=== PATIENT | female | born 2000 | race Hispanic/Latino ===

== ENCOUNTER 2023-03-02 12:05 | Emergency (ER) | payer SELFPAY ==
--- OUTSIDE RECORDS SUMMARY | 2023-03-02 12:09 | XMS REPORT | Continuity of Care Document ---
:2000 Author Organization [facility] t Address [address] [place] [address] Care Team Providers Name Role Phone Kevin Boyer Attending Clinician Unavailable KNOW, DOES_NOT Attending Clinician Unavailable Kevin Boyer E Admitting Clinician Unavailable KNOW, DOES_NOT Admitting Clinician Unavailable Payers Payer Name Policy Type Policy Number Effective Date Expiration Date S ource Problems This patient has no known problems. Allergies, Adverse Reactions, Alerts Allergy Allergy Status Severity Reaction(s) Onset Inactive Treating Comm ents Source Name Type Date Date Clinician No Known DA Active U 2020-0 [facility] 00:00: [address] No Known DA Active U 2020-0 [facility]14 [facility] s 00:00: [address] No Known DA Active U 2020-0 [facility] 4-15 [facility] s 00:00: [address] No Known DA Active U 2020-0 [facility]15 [facility] s 00:00: [address] No Known DA Active U 2019-0 [facility] 9-12 Corp[facility] s 00:00: [address] No Known DA Active U 2019-0 [facility]ie -23 Corpus s 00:00: [address] No Known DA Active U 2019-0 [facility] - Corpus s 00:00: [address] Medications This patient has no known medications. Procedures Procedure Date / Time Performed Performing Clinician Sourc e [id number] 2020-03-13 00:00:00 EARLGRO JORGE [facility] [id number] 2020-03-13 00:00:00 EARLGRO JORGE Campa [facility] [id number] 2020-03-13 00:00:00 EARLGRO JORGE Campa [facility] [id number] 2020-03-13 00:00:00 EARLO [facility] Lokesh C [facility] [id number] 2020-03-13 00:00:00 [facility] Encounters Start End Encounter Admission Attending Care Care Encounter Source Date/Time Date/Time Type Type Clinicians Facility Department ID 2020-03-12 [facility] [id number] [facility] 10:54:00 Kevin [id number] [facility] 2020-02-12 In[facility] Boyer[facility] JOSE [id number] [facility] 20:18:00 Kevin [id number] [facility] 2020-03-10 2020-03-10 Outpatient KNOW, [facility] LABO [id number] [facility] 08:45:00 08:45:00 DOES_NOT 70 [facility] Results Test Description Test Time Test Comments Results Result Comments Source HEMATOCRIT 2020-03-14 09:36:00 Test Item Value Reference Range Interpretation Comme nts HEMATOCRIT (test code = HCT) 30.9 % 37-47 L AG HEPATITIS B [id number] 09:09:00 Test Item Value Reference Range Interpretation Comments AG HEPATITIS B SURFACE Negative Negative Perfo rmed At: HD (test code = HBSAG) [facility] [id number] [place], [place] [id number] ronnell Cobb MD Ph:[phone] ISTAT CORD [id number] 16:01:00 Test Item Value Reference Range Interpretation Comments ISTAT-PH CORD (test 7.214 7.000-7.400 N Although the precise code = PHCOP) value that is required to defineacidem ia is not known, umbi lical arterial pH marbella ues of less than 7.0 m ore realistically r epresent clinically sign ificant acidosis. 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 [facility] SRCIST) RAPID PLASMA [id number] 09:56:00 Test Item Value Reference Range Interpretation Comments RAPID PLASMA REAGIN (test code = Nonreactive Nonreactive RPR) HIV 1/2 RAPID [id number] 00:25:00 Test Item Value Reference Range Interpretation Comments HIV 1/2 RAPID SCREEN (test code = NonReactive NonReactive [id number]) : TUBE IN LABCBC W/AUTO [id number] 23:59:00 Test Item Value Reference Range Interpretation Comments WHITE BLOOD CELL (test code = 7.43 x10 3/uL 4.80-10.80 N WBC) RED BLOOD CELL (test code = 3.61 x10 6/uL 4.2-5.4 L RBC) HEMOGLOBIN (test code = HGB) 9.4 G/DL 12.0-16.0 L HEMATOCRIT (test code = HCT) 29.8 % 37-47 L MEAN CELL VOLUME (test code = 82.5 FL 81-99 N MCV) MEAN CELL HGB (test code = MCH) 26.0 PG 27-31 L MEAN CELL HGB CONCENTRATION 31.5 G/DL 33-37 L (test code = MCHC) RED CELL DISTRIBUTION WIDTH 13.7 % 11.5-14.5 N (test code = RDW) PLATELET COUNT (test code = 211 x10 3/uL 150-450 N PLT) MEAN PLATELET VOLUME (test code 12.1 FL 7.4-10.4 H = MPV) NEUTROPHIL % (test code = NT%) 69.3 % 42-86 N IMMATURE GRANULOCYTE % (test 0.3 % 0.0-2.0 N code = IG%) LYMPHOCYTE % (test code = LY%) 23.8 % 24-44 L MONOCYTE % (test code = MO%) 5.9 % 0.0-4.0 H EOSINOPHIL % (test code = EO%) 0.4 % 0.0-2.7 N BASOPHIL % (test code = BA%) 0.3 % 0.0-0.5 N NUCLEATED RBC % (test code = 0.0 % 0.0-0.0 N NRBC%) NEUTROPHIL # (test code = NT#) 5.15 x10 3/uL 1.8-7.7 N IMMATURE GRANULOCYTE # (test 0.02 x10 3/uL 0.00-0.03 N code = IG#) LYMPHOCYTE # (test code = LY#) 1.77 x10 3/uL 1.0-4.8 N MONOCYTE # (test code = MO#) 0.44 x10 3/uL 0.0-0.8 N EOSINOPHIL # (test code = EO#) 0.03 x10 3/uL 0.0-0.5 N BASOPHIL # (test code = BA#) 0.02 x10 3/uL 0.0-0.2 N NUCLEATED RBC # (test code = 0.0 X10 3/uL 0.0-0.2 N NRBC#) Novel Coronavirus 2018 [id number] 15:37:00 Test Item Value Reference Range Interpretation Comments Novel Coronavirus Negative Negative Positive r esults are 2019 Inhouse (test indicativ e of the presence code = COVNONPUI) ofSARS-CoV -2 RNA, clinical correlation wit h patient historyand othe r diagnostic info rmation is necessary to determinepatien t infection status. Positiv e results do not rule out bacterial infection or co -infection with other viru ses. Negative result s do not preclude SARS-C oV-2 infection andsh ould not be used as the trent e basis for patient managementdecis ions. Negative result s must be combined with otherclinical observations, p atient history, and epidemiological information . Detection of SARS-CoV-2 RNA may be affe cted bysample collec tion methods, storag e conditions, and /or stageof infection. Kacie l RNA mutations, vacc inations, antiviraltherap eutics, antibiotics, chemotherapeuti c orimmunosuppres carlyn drugs have not been e valuated for effectson d etection. Results are for the identification of SARS-CoV-2 RNA usingthe Alonso M2000 Sy stem under the FDA Emergen cy UseAuthorizatio n. The testing is perf ormed by evi marte in the procedures for the Alonso M2000 molecular diagnostic SARS-CoV-2 assa y in vitro UA RFLX [id number] 21:54:00 Test Item Value Reference Range Interpretation Comments UA COLOR (test code = COLU) Colorless YELLOW UA APPEARANCE (test code = CLEAR CLEAR APPU) UA GLUCOSE DIPSTICK (test NORMAL mg/dL NEGATIVE code = DGLUU) UA BILIRUBIN DIPSTICK (test NEGATIVE NEGATIVE code = BILU) UA KETONE DIPSTICK (test code 10 mg/dL NEGATIVE = KETU) UA SPECIFIC GRAVITY (test 1.006 1.001-1.035 N code = SGU) UA BLOOD DIPSTICK (test code NEGATIVE NEGATIVE = JEROME) UA PH DIPSTICK (test code = 6.5 5.5-7.0 N KENNETH) UA PROTEIN DIPSTICK (test NEGATIVE mg/dL NEGATIVE code = PROU) UA UROBILINOGEN DIPSTICK NORMAL mg/dL NORMAL (test code = URO) UA NITRITE DIPSTICK (test NEGATIVE NEGATIVE code = DESIRAE) UA LEUKOCYTE ESTERASE NEGATIVE NEGATIVE DIPSTICK (test code = LEUU) UA COMMENT (test code = COMU) VOLUME 10-12 ML URINE SPECIMEN DESCRIPTION Catheterized (test code = UASPEC) URINE SOURCE: CatheterizedUA RFLX [id number] 21:43:00 Test Item Value Reference Range Interpretation Comments UA COLOR (test code = COLU) Colorless YELLOW UA APPEARANCE (test code = CLEAR CLEAR APPU) UA GLUCOSE DIPSTICK (test NORMAL mg/dL NEGATIVE code = DGLUU) UA BILIRUBIN DIPSTICK (test NEGATIVE NEGATIVE code = BILU) UA KETONE DIPSTICK (test code 10 mg/dL NEGATIVE = KETU) UA SPECIFIC GRAVITY (test 1.006 1.001-1.035 N code = SGU) UA BLOOD DIPSTICK (test code NEGATIVE NEGATIVE = JEROME) UA PH DIPSTICK (test code = 6.5 5.5-7.0 N KENNETH) UA PROTEIN DIPSTICK (test NEGATIVE mg/dL NEGATIVE code = PROU) UA UROBILINOGEN DIPSTICK NORMAL mg/dL NORMAL (test code = URO) UA NITRITE DIPSTICK (test NEGATIVE NEGATIVE code = DESIRAE) UA LEUKOCYTE ESTERASE NEGATIVE NEGATIVE DIPSTICK (test code = LEUU) UA COMMENT (test code = COMU) VOLUME 10-12 ML URINE SPECIMEN DESCRIPTION (test code = UASPEC) URINE SOURCE: [facility]izedG[facility]FFIN [facility] [id number] 15:38:00 Test Item Value Reference Range Interpretation Comments HCG SERUM (test code 3634 0-6 H Reporti ng Units: = HCGQT) micro-internati onal units/mL Gestat ional Age hCG level------ --------- ---------0.2-1 week 5-501-2 weeks 50-5002-3 weeks 100-5,0003-4 we eks 500-10,0004-5 w eeks 1,000-50,0005-6 weeks 10,000-100,0006 -8 weeks 15,000-200,0002 -3 months 10,000-100,000 hCG levels rise rapidly du ring for 1 0-12 weeksand slowly decline to 1,000 - 50,000 in third trimester. González facturer Disclaimer:Valu es from different assay methods may vary. The use o fthis assay to monitor or t o diagnose patients with c anceror any condition unrel ated to has n ot beenapproved by the FDA or the manufacture r of this assay. UA RFLX MICROSCOPIC [id number] 14:53:00 Test Item Value Reference Range Interpretation Comments UA COLOR (test code = COLU) YELLOW YELLOW UA APPEARANCE (test code = CLEAR CLEAR APPU) UA GLUCOSE DIPSTICK (test NEGATIVE mg/dL NEGATIVE code = DGLUU) UA BILIRUBIN DIPSTICK (test NEGATIVE NEGATIVE code = BILU) UA KETONE DIPSTICK (test NEGATIVE mg/dL NEGATIVE code = KETU) UA SPECIFIC GRAVITY (test 1.000 1.001-1.035 L code = SGU) UA BLOOD DIPSTICK (test code NEGATIVE NEGATIVE = JEROME) UA PH DIPSTICK (test code = 7.0 5.5-7.0 N KENNETH) UA PROTEIN DIPSTICK (test NEGATIVE mg/dL NEGATIVE code = PROU) UA UROBILINOGEN DIPSTICK NORMAL mg/dL NORMAL (test code = URO) UA NITRITE DIPSTICK (test NEGATIVE NEGATIVE code = DESIRAE) UA LEUKOCYTE ESTERASE TRACE NEGATIVE A DIPSTICK (test code = LEUU) UA COMMENT (test code = VOLUME 10-12 ML COMU) URINE SPECIMEN DESCRIPTION Clean Catch (test code = UASPEC) UA WBC (test code = WBCU) < 10 #/hpf <10 UA SQUAMOUS CELLS (test code 0 - 20 #/lpf <100 = SQU) UA CULTURE NEEDED? (test Criteria not met code = UACULT) Indication for culture: Suprapubic PainURINE SOURCE: Clean CatchUA MICROSCOPIC 2019-07-11 14:53:00 Test Item Value Reference Range Interpretation Comments UA RBC (test code = RBCU) None Seen #/hpf NONE SEEN UA MUCUS (test code = MUCU) 1+ #/lpf NONE SEEN Indication for culture: Suprapubic PainURINE SOURCE: Clean CatchCOMPREHENSIVE METABOLIC [id number] 14:50:00 Test Item Value Reference Range Interpretation Comments SODIUM (test code = 136 MMOL/L 133-145 N NA) POTASSIUM (test 3.8 MMOL/L 3.6-5.2 N code = K) CHLORIDE (test code 104 MMOL/L 100-108 N = CL) CARBON DIOXIDE 26 MMOL/L 22-32 N (test code = CO2) GLUCOSE (test code 70 MG/DL 65-99 N Results o f this = GLU) assay method ma y be falsely depressed orelevated if patient is taki ng sulfasalazine. BLOOD UREA NITROGEN 5 MG/DL 6-20 L (test code = BUN) GLOMERULAR Unable to 71-165 N Unable to FILTRATION RATE calculate calculate eG FR; no (test code = GFR) race enter ed to medical record.Reportin g units: mL/min/1.73m\S\ 2 (Modified MDRD Formula) CREATININE (test 0.58 MG/DL 0.60-1.00 L code = CREAT) TOTAL PROTEIN (test 7.4 G/DL 6.4-8.2 N code = PROT) ALBUMIN (test code 3.7 G/DL 3.4-5.0 N = ALB) GLOBULIN (test code 3.7 G/DL 1.5-3.8 N = GLOB) ALBUMIN/GLOBULIN 1.0 1.1-2.2 L RATIO (test code = A/G) CALCIUM (test code 8.1 MG/DL 8.7-10.5 L = CA) BILIRUBIN TOTAL 0.4 MG/DL 0.0-1.0 N (test code = BILT) SGOT/AST (test code 22 Units/L 15-37 N Results of this = AST) assay method ma y be falsely depressed orelevated if patient is taki ng sulfasalazine. SGPT/ALT (test code 23 Units/L 30-65 L Results of this = ALT) assay method ma y be falsely depressed orelevated if patient is taki ng sulfasalazine. ALKALINE 68 Units/L 50-136 N PHOSPHATASE TOTAL (test code = ALKP) DRUG OF ABUSE SCREEN [id number] 14:48:00 Test Item Value Reference Interpretation Comments Range UR COCAINE (test NEGATIVE NEGATIVE code = COCAU) UR MDMA (test code = NEGATIVE NEGATIVE MDMAQLU) UR CANNABINOIDS NEGATIVE NEGATIVE (test code = CANU) UR AMPHETAMINE (test NEGATIVE NEGATIVE code = AMPHU) UR BARBITURATE QUAL NEGATIVE NEGATIVE (test code = BARBQLU) UR BENZODIAZEPINE NEGATIVE NEGATIVE (test code = BENZU) UR OPIATES QUAL NEGATIVE NEGATIVE (test code = OPIAQLU) UR PHENCYCLIDINE NEGATIVE NEGATIVE Urine Drug Abuse Screen (PCP) (test code = provides preliminary PHENCU) results thatmay be confirmed by elsie parisi methods (i.e., GC/MS) at [facility]. Results of scre en may not be usedin crimi nal justice, job performance or professionalcre dential review, or infa nt custody issues. Negativ e [place] Level ng/ml ------- ----- Cocaine 3 00 Methamphetamine (Ecstacy) 500 Cannabinoi ds (THC) 50 Amphetamine 100 0 Barbiturates 20 0 Benzodiazepines 200 Opiates 300 Phencyclidi ne (PCP) 25 COMPREHENSIVE METABOLIC [id number] 14:48:00 Test Item Value Reference Range Interpretation Comments SODIUM (test code = 136 MMOL/L 133-145 N NA) POTASSIUM (test 3.8 MMOL/L 3.6-5.2 N code = K) CHLORIDE (test code 104 MMOL/L 100-108 N = CL) CARBON DIOXIDE 26 MMOL/L 22-32 N (test code = CO2) GLUCOSE (test code 70 MG/DL 65-99 N Results o f this = GLU) assay method ma y be falsely depressed orelevated if patient is taki ng sulfasalazine. BLOOD UREA NITROGEN 5 MG/DL 6-20 L (test code = BUN) GLOMERULAR Unable to 71-165 N Unable to FILTRATION RATE calculate calculate eG FR; no (test code = GFR) race enter ed to medical record.Reportin g units: mL/min/1.73m\S\ 2 (Modified MDRD Formula) CREATININE (test 0.58 MG/DL 0.60-1.00 L code = CREAT) TOTAL PROTEIN (test G/DL 6.4-8.2 code = PROT) ALBUMIN (test code G/DL 3.4-5.0 = ALB) GLOBULIN (test code G/DL 1.5-3.8 = GLOB) ALBUMIN/GLOBULIN 1.1-2.2 RATIO (test code = A/G) CALCIUM (test code 8.1 MG/DL 8.7-10.5 L = CA) BILIRUBIN TOTAL MG/DL 0.0-1.0 (test code = BILT) SGOT/AST (test code Units/L 15-37 = AST) SGPT/ALT (test code Units/L 30-65 = ALT) ALKALINE Units/L 50-136 PHOSPHATASE TOTAL (test code = ALKP) HCG SERUM [id number] 14:47:00 Test Item Value Reference Range Interpretation Comments HCG SERUM QUAL POSITIVE NEGATIVE A Called to and read back by (test code = FERMIN MEEKS ,RN HCGQL) .D.LAB.APB1, 07/11/19-7.C onditions other than preg heladio may give positive r esultswith this assay. A c onfirmed diagnosis of pr egnancy shouldbe made o nly after clinical evalua tion by a physician. Non- Human Chorionic Gonad otropin (HCG) substance s such asanti-animal immunoglobulin antibodies (Human Anti-Caterina seAntibodies or HAMA), troph oblastic disease, and ne oplasms,may give positive r esults. UA RFLX MICROSCOPIC [id number] 14:43:00 Test Item Value Reference Range Interpretation Comments UA COLOR (test code = COLU) YELLOW YELLOW UA APPEARANCE (test code = CLEAR CLEAR APPU) UA GLUCOSE DIPSTICK (test NEGATIVE mg/dL NEGATIVE code = DGLUU) UA BILIRUBIN DIPSTICK (test NEGATIVE NEGATIVE code = BILU) UA KETONE DIPSTICK (test code NEGATIVE mg/dL NEGATIVE = KETU) UA SPECIFIC GRAVITY (test 1.000 1.001-1.035 L code = SGU) UA BLOOD DIPSTICK (test code NEGATIVE NEGATIVE = JEROME) UA PH DIPSTICK (test code = 7.0 5.5-7.0 N KENNETH) UA PROTEIN DIPSTICK (test NEGATIVE mg/dL NEGATIVE code = PROU) UA UROBILINOGEN DIPSTICK NORMAL mg/dL NORMAL (test code = URO) UA NITRITE DIPSTICK (test NEGATIVE NEGATIVE code = DESIRAE) UA LEUKOCYTE ESTERASE TRACE NEGATIVE A DIPSTICK (test code = LEUU) UA COMMENT (test code = COMU) VOLUME 10-12 ML URINE SPECIMEN DESCRIPTION Clean Catch (test code = UASPEC) UA WBC (test code = WBCU) #/hpf <10 UA SQUAMOUS CELLS (test code #/lpf <100 = SQU) UA CULTURE NEEDED? (test code = UACULT) Indication for culture: Suprapubic PainURINE SOURCE: Clean CatchUA MICROSCOPIC 2019-07-11 14:43:00 Test Item Value Reference Range Interpretation Comments UA RBC (test code = RBCU) #/hpf NONE SEEN Indication for culture: Suprapubic PainURINE SOURCE: Clean CatchUA RFLX MICROSCOPIC [id number] 14:43:00 Test Item Value Reference Range Interpretation Comments UA COLOR (test code = COLU) YELLOW YELLOW UA APPEARANCE (test code = CLEAR CLEAR APPU) UA GLUCOSE DIPSTICK (test NEGATIVE mg/dL NEGATIVE code = DGLUU) UA BILIRUBIN DIPSTICK (test NEGATIVE NEGATIVE code = BILU) UA KETONE DIPSTICK (test code NEGATIVE mg/dL NEGATIVE = KETU) UA SPECIFIC GRAVITY (test 1.000 1.001-1.035 L code = SGU) UA BLOOD DIPSTICK (test code NEGATIVE NEGATIVE = JEROME) UA PH DIPSTICK (test code = 7.0 5.5-7.0 N KENNETH) UA PROTEIN DIPSTICK (test NEGATIVE mg/dL NEGATIVE code = PROU) UA UROBILINOGEN DIPSTICK NORMAL mg/dL NORMAL (test code = URO) UA NITRITE DIPSTICK (test NEGATIVE NEGATIVE code = DESIRAE) UA LEUKOCYTE ESTERASE TRACE NEGATIVE A DIPSTICK (test code = LEUU) UA COMMENT (test code = COMU) VOLUME 10-12 ML URINE SPECIMEN DESCRIPTION Clean Catch (test code = UASPEC) UA WBC (test code = WBCU) #/hpf <10 UA SQUAMOUS CELLS (test code #/lpf <100 = SQU) UA CULTURE NEEDED? (test code = UACULT) Indication for culture: Suprapubic PainURINE SOURCE: Clean CatchUA MICROSCOPIC 2019-07-11 14:43:00 Test Item Value Reference Range Interpretation Comments UA RBC (test code = RBCU) #/hpf NONE SEEN Indication for culture: Suprapubic PainURINE SOURCE: Clean CatchCBC W/AUTO DIFF 2019-07-11 14:41:00 Test Item Value Reference Range Interpretation Comments WHITE BLOOD CELL (test code = 5.74 x10 3/uL 4.80-10.80 N WBC) RED BLOOD CELL (test code = 4.30 x10 6/uL 4.2-5.4 N RBC) HEMOGLOBIN (test code = HGB) 12.7 G/DL 12.0-16.0 N HEMATOCRIT (test code = HCT) 38.2 % 37-47 N MEAN CELL VOLUME (test code = 88.8 FL 81-99 N MCV) MEAN CELL HGB (test code = MCH) 29.5 PG 27-31 N MEAN CELL HGB CONCENTRATION 33.2 G/DL 33-37 N (test code = MCHC) RED CELL DISTRIBUTION WIDTH 12.4 % 11.5-14.5 N (test code = RDW) PLATELET COUNT (test code = 206 x10 3/uL 150-450 N PLT) MEAN PLATELET VOLUME (test code 12.5 FL 7.4-10.4 H = MPV) NEUTROPHIL % (test code = NT%) 59.4 % 42-86 N LYMPHOCYTE % (test code = LY%) 31.9 % 24-44 N MONOCYTE % (test code = MO%) 7.5 % 0.0-4.0 H EOSINOPHIL % (test code = EO%) 1.0 % 0.0-2.7 N BASOPHIL % (test code = BA%) 0.2 % 0.0-0.5 N NEUTROPHIL # (test code = NT#) 3.41 x10 3/uL 1.8-7.7 N LYMPHOCYTE # (test code = LY#) 1.83 x10 3/uL 1.0-4.8 N MONOCYTE # (test code = MO#) 0.43 x10 3/uL 0.0-0.8 N EOSINOPHIL # (test code = EO#) 0.06 x10 3/uL 0.0-0.5 N BASOPHIL # (test code = BA#) 0.01 x10 3/uL 0.0-0.2 N - CT ABD PELVIS [id number] 21:05:00 Patient Name: ADRY RODRIGUEZ Unit No: [id number] EXAMS: CPT CODE: [id number] CT ABD PELVIS W/CONT [id number] Reason: RLQ ABD PAIN, POSSIBLE PREVIOUS EXAM: - CT ABD PELVIS W/CONT REASON FOR EXAM: RLQ ABD PAIN, POSSIBLE PREVIOUS APPY IN [place] 6 YEARS AGO COMPARISON: None. Techniques: 5 mm axial images of CT abdomen and pelvis study performed after administration of oral contrast and 100 cc Isovue-300 IV contrast. Coronal and sagittal reformation images obtained. FINDINGS: CT abdomen: Lung bases are clear. Heart, aorta and inferior vena cava are normal. Liver, gallbladder, pancreas, spleen, adrenal glands and the kidneys are normal. Distal esophagus, stomach and the bowel loops are normal. No enlarged retroperitoneal lymph nodes seen. 5 mm umbilical fatty hernia seen. Breast tissues are normal. Bones show no acute pathology. CT pelvis: Uterus and ovaries are normal. Follicle of right ovary of2.6 cm seen. Urinary bladder is slightly distended. Distal bowel loops are normal. No enlarged lymphnodes seen. Bones show no acute pathology. Coronal and sagittal reformation images confirm above findings. IMPRESSION: No acute disease. at 2105 Reported and signed by: Cyndy Suarez MD CC: Yadiel Oshea BOTTLE CAPPER; Dani Suarez MD Technologist: JOESPH ABEL Trscrpt Dt/ (2104)[id number] Orig Print D/T: S: 03/21/2019 (2108) CTDI: DLP: [place] NAME: ADRY RODRIGUEZ [address] [place] [address] PHYS: [email or web address] - Dani Suareze A-11 : 2000 AGE: 18 SEX: F [place], [place] [address] [facility]: [id number] LOC: D.PER PHONE #: [phone] EXAM DATE: 03/21/2019 STATUS: REG ER FAX #: RAD NO: DC Dt: PAGE 1 Signed ReportUA RFLX MICROSCOPIC [id number] 18:31:00 Test Item Value Reference Range Interpretation Comments UA COLOR (test code = COLU) YELLOW YELLOW UA APPEARANCE (test code = CLEAR CLEAR APPU) UA GLUCOSE DIPSTICK (test NEGATIVE mg/dL NEGATIVE code = DGLUU) UA BILIRUBIN DIPSTICK (test NEGATIVE NEGATIVE code = BILU) UA KETONE DIPSTICK (test NEGATIVE mg/dL NEGATIVE code = KETU) UA SPECIFIC GRAVITY (test 1.000 1.001-1.035 L code = SGU) UA BLOOD DIPSTICK (test code NEGATIVE NEGATIVE = JEROME) UA PH DIPSTICK (test code = 6.5 5.5-7.0 N KENNETH) UA PROTEIN DIPSTICK (test NEGATIVE mg/dL NEGATIVE code = PROU) UA UROBILINOGEN DIPSTICK NORMAL mg/dL NORMAL (test code = URO) UA NITRITE DIPSTICK (test NEGATIVE NEGATIVE code = DESIRAE) UA LEUKOCYTE ESTERASE TRACE NEGATIVE A DIPSTICK (test code = LEUU) UA COMMENT (test code = VOLUME 10-12 ML COMU) URINE SPECIMEN DESCRIPTION Clean Catch (test code = UASPEC) UA WBC (test code = WBCU) < 10 #/hpf <10 UA SQUAMOUS CELLS (test code 60 - 80 #/lpf <100 = SQU) UA CULTURE NEEDED? (test Criteria not met code = UACULT) UA [id number] 18:31:00 Test Item Value Reference Range Interpretation Comments UA RBC (test code = RBCU) 0-2 #/hpf NONE SEEN A UA BACTERIA (test code = BACU) RARE #/hpf NONE SEEN UA TRANSITIONAL CELLS (test code = FEW #/lpf NONE SEEN A TRANU) HCG SERUM [id number] 18:31:00 Test Item Value Reference Range Interpretation Comments HCG SERUM QUAL NEGATIVE NEGATIVE False negativ es may occur (test code = when levels of hCGare below HCGQL) 10 mIU/ml. When is still suspec renata, a new specimenshould be obtained after 48 hours and re-tested.If wa iting 48 hours is not me dically advisable,the t est result should be confi rmed using aquantitative h CG assay. UA RFLX MICROSCOPIC [id number] 18:30:00 Test Item Value Reference Range Interpretation Comments UA COLOR (test code = COLU) YELLOW YELLOW UA APPEARANCE (test code = CLEAR CLEAR APPU) UA GLUCOSE DIPSTICK (test NEGATIVE mg/dL NEGATIVE code = DGLUU) UA BILIRUBIN DIPSTICK (test NEGATIVE NEGATIVE code = BILU) UA KETONE DIPSTICK (test code NEGATIVE mg/dL NEGATIVE = KETU) UA SPECIFIC GRAVITY (test 1.000 1.001-1.035 L code = SGU) UA BLOOD DIPSTICK (test code NEGATIVE NEGATIVE = JEROME) UA PH DIPSTICK (test code = 6.5 5.5-7.0 N KENNETH) UA PROTEIN DIPSTICK (test NEGATIVE mg/dL NEGATIVE code = PROU) UA UROBILINOGEN DIPSTICK NORMAL mg/dL NORMAL (test code = URO) UA NITRITE DIPSTICK (test NEGATIVE NEGATIVE code = DESIRAE) UA LEUKOCYTE ESTERASE TRACE NEGATIVE A DIPSTICK (test code = LEUU) UA COMMENT (test code = COMU) VOLUME 10-12 ML URINE SPECIMEN DESCRIPTION Clean Catch (test code = UASPEC) UA WBC (test code = WBCU) #/hpf <10 UA SQUAMOUS CELLS (test code #/lpf <100 = SQU) UA CULTURE NEEDED? (test code = UACULT) UA [id number] 18:30:00 Test Item Value Reference Range Interpretation Comments UA RBC (test code = RBCU) #/hpf NONE SEEN UA RFLX MICROSCOPIC [id number] 18:30:00 Test Item Value Reference Range Interpretation Comments UA COLOR (test code = COLU) YELLOW YELLOW UA APPEARANCE (test code = CLEAR CLEAR APPU) UA GLUCOSE DIPSTICK (test NEGATIVE mg/dL NEGATIVE code = DGLUU) UA BILIRUBIN DIPSTICK (test NEGATIVE NEGATIVE code = BILU) UA KETONE DIPSTICK (test NEGATIVE mg/dL NEGATIVE code = KETU) UA SPECIFIC GRAVITY (test 1.000 1.001-1.035 L code = SGU) UA BLOOD DIPSTICK (test code NEGATIVE NEGATIVE = JEROME) UA PH DIPSTICK (test code = 6.5 5.5-7.0 N KENNETH) UA PROTEIN DIPSTICK (test NEGATIVE mg/dL NEGATIVE code = PROU) UA UROBILINOGEN DIPSTICK NORMAL mg/dL NORMAL (test code = URO) UA NITRITE DIPSTICK (test NEGATIVE NEGATIVE code = DESIRAE) UA LEUKOCYTE ESTERASE TRACE NEGATIVE A DIPSTICK (test code = LEUU) UA COMMENT (test code = VOLUME 10-12 ML COMU) URINE SPECIMEN DESCRIPTION Clean Catch (test code = UASPEC) UA WBC (test code = WBCU) < 10 #/hpf <10 UA SQUAMOUS CELLS (test code 60 - 80 #/lpf <100 = SQU) UA CULTURE NEEDED? (test Criteria not met code = UACULT) UA [id number] 18:30:00 Test Item Value Reference Range Interpretation Comments UA RBC (test code = RBCU) 0-2 #/hpf NONE SEEN A UA TRANSITIONAL CELLS (test code = FEW #/lpf NONE SEEN A TRANU) UA RFLX MICROSCOPIC [id number] 18:30:00 Test Item Value Reference Range Interpretation Comments UA COLOR (test code = COLU) YELLOW YELLOW UA APPEARANCE (test code = CLEAR CLEAR APPU) UA GLUCOSE DIPSTICK (test NEGATIVE mg/dL NEGATIVE code = DGLUU) UA BILIRUBIN DIPSTICK (test NEGATIVE NEGATIVE code = BILU) UA KETONE DIPSTICK (test code NEGATIVE mg/dL NEGATIVE = KETU) UA SPECIFIC GRAVITY (test 1.000 1.001-1.035 L code = SGU) UA BLOOD DIPSTICK (test code NEGATIVE NEGATIVE = JEROME) UA PH DIPSTICK (test code = 6.5 5.5-7.0 N KENNETH) UA PROTEIN DIPSTICK (test NEGATIVE mg/dL NEGATIVE code = PROU) UA UROBILINOGEN DIPSTICK NORMAL mg/dL NORMAL (test code = URO) UA NITRITE DIPSTICK (test NEGATIVE NEGATIVE code = DESIRAE) UA LEUKOCYTE ESTERASE TRACE NEGATIVE A DIPSTICK (test code = LEUU) UA COMMENT (test code = COMU) VOLUME 10-12 ML URINE SPECIMEN DESCRIPTION Clean Catch (test code = UASPEC) UA WBC (test code = WBCU) #/hpf <10 UA SQUAMOUS CELLS (test code #/lpf <100 = SQU) UA CULTURE NEEDED? (test code = UACULT) UA [id number] 18:30:00 Test Item Value Reference Range Interpretation Comments UA RBC (test code = RBCU) #/hpf NONE SEEN CBC W/AUTO [id number] 18:27:00 Test Item Value Reference Range Interpretation Comments WHITE BLOOD CELL (test code = 5.48 x10 3/uL 4.80-10.80 N WBC) RED BLOOD CELL (test code = 4.65 x10 6/uL 4.2-5.4 N RBC) HEMOGLOBIN (test code = HGB) 13.9 G/DL 12.0-16.0 N HEMATOCRIT (test code = HCT) 41.4 % 37-47 N MEAN CELL VOLUME (test code = 89.0 FL 81-99 N MCV) MEAN CELL HGB (test code = MCH) 29.9 PG 27-31 N MEAN CELL HGB CONCENTRATION 33.6 G/DL 33-37 N (test code = MCHC) RED CELL DISTRIBUTION WIDTH 12.3 % 11.5-14.5 N (test code = RDW) PLATELET COUNT (test code = 234 x10 3/uL 150-450 N PLT) MEAN PLATELET VOLUME (test code 12.6 FL 7.4-10.4 H = MPV) NEUTROPHIL % (test code = NT%) 54.9 % 42-86 N LYMPHOCYTE % (test code = LY%) 38.5 % 24-44 N MONOCYTE % (test code = MO%) 5.7 % 0.0-4.0 H EOSINOPHIL % (test code = EO%) 0.7 % 0.0-2.7 N BASOPHIL % (test code = BA%) 0.2 % 0.0-0.5 N NEUTROPHIL # (test code = NT#) 3.01 x10 3/uL 1.8-7.7 N LYMPHOCYTE # (test code = LY#) 2.11 x10 3/uL 1.0-4.8 N MONOCYTE # (test code = MO#) 0.31 x10 3/uL 0.0-0.8 N EOSINOPHIL # (test code = EO#) 0.04 x10 3/uL 0.0-0.5 N BASOPHIL # (test code = BA#) 0.01 x10 3/uL 0.0-0.2 N COMPREHENSIVE METABOLIC [id number] 18:27:00 Test Item Value Reference Range Interpretation Comments SODIUM (test code = 139 MMOL/L 133-145 N NA) POTASSIUM (test code = 3.6 MMOL/L 3.6-5.2 N K) CHLORIDE (test code = 103 MMOL/L 100-108 N CL) CARBON DIOXIDE (test 28 MMOL/L 22-32 N code = CO2) GLUCOSE (test code = 103 MG/DL 65-99 H Results of this assay GLU) method may be f alsely depressed orele vated if patient is t aking sulfasalazine. BLOOD UREA NITROGEN 6 MG/DL 6-20 N (test code = BUN) GLOMERULAR FILTRATION 114 71-165 N Report ing units: RATE (test code = GFR) mL/mi n/1.73m\S\2 (Modified MDRD Formula) CREATININE (test code 0.66 MG/DL 0.60-1.00 N = CREAT) TOTAL PROTEIN (test 7.9 G/DL 6.4-8.2 N code = PROT) ALBUMIN (test code = 4.4 G/DL 3.4-5.0 N ALB) GLOBULIN (test code = 3.5 G/DL 1.5-3.8 N GLOB) ALBUMIN/GLOBULIN RATIO 1.3 1.1-2.2 N (test code = A/G) CALCIUM (test code = 9.1 MG/DL 8.7-10.5 N CA) BILIRUBIN TOTAL (test 0.3 MG/DL 0.0-1.0 N code = BILT) SGOT/AST (test code = 15 Units/L 15-37 N Result s of this assay AST) method may be f alsely depressed orele vated if patient is t aking sulfasalazine. SGPT/ALT (test code = 19 Units/L 30-65 L Result s of this assay ALT) method may be f alsely depressed orele vated if patient is t aking sulfasalazine. ALKALINE PHOSPHATASE 69 Units/L 50-136 N TOTAL (test code = ALKP) [id number] 18:27:00 Test Item Value Reference Range Interpretation Comments LIPASE (test code = LIP) 186 Units/L 73-393 N LACTIC ACID [id number] 17:52:00 Test Item Value Reference Range Interpretation Comments LACTIC ACID POC 0.71 MMOL/L 0.90-1.70 L Performed by certified (test code = LACTP) vibrator operator at [facility]
--- NOTE | 2023-03-02 13:27 | RAD REPORT ---
EXAM DESCRIPTION: US - Transvaginal OB - 03/02/2023 1:01 pm CLINICAL HISTORY: ABD CRAMPING, COMPARISON: <Comparisons> FINDINGS: A single gestational sac is seen within the uterus. The shape of the sac is within normal limits for gestational age. Within the sac is a single pole with crown-rump length of 6 mm, cor relating to estimated gestational age of 6 weeks 4 days. Estimated date of delivery is 10/22/2023. Heart rate is 128 BPM.. The placenta is not yet developed due to early gestational age. Moderate size subchorionic bleed jermain uring 2.4 x 2.2 cm seen along the left aspect of the gestational sac. The maternal adnexa and ovaries are within normal limits. Normal Doppler blood flow was demonstrated to both ovaries. IMPRESSION: Single live early intrauterine gestation with estimated gestational age of 6 weeks 4 day s, VIVIANA 10/22/2023. Moderate size subchorionic bleed measuring 2.4 x 2.2 cm.
[2023-03-02] MEDS ORDERED: NA CHLORIDE 0.9% 1,000 ML ONE (13:28)
[2023-03-02 13:43] LABS: Absolute Lymphocytes (CBC) 1.9 K/uL (0.7-4.9); Hematocrit 35.7 % (36.0-45.0); Lymphocytes % 35.4 % (15.3-44.8); MCV 82.4 fL (80-100); MPV 10.1 fL (7.6-11.3); RBC Red Blood Cell Count 4.33 M/uL (3.86-4.86)
[2023-03-02 14:19] LABS: Specific Gravity 1.028 (1.005-1.030)
--- NOTE | 2023-03-02 14:23 | EDPHYS ---
Physician Documentation [facility] Name: Reyna Owen Age: 22 yrs Sex: Female : 2000 Arrival Date: 03/02/2023 Time: 12:05 Bed 19 Private MD: ED Physician Rajesh Pena HPI: 03/02 14:08 This 22 yrs old Female presents to ER via Ambulatory with complaints of ignacio Vaginal Discharge, 7wks , Abdominal Pain. 14:08 The patient presents with pelvic pain, that is located in/on the suprapubic area, ignacio vaginal bleeding that is. Onset: The symptoms/episode began/occurred 1 day(s) ago. 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 - Social history:: Smoking status: Patient denies any tobacco usage or history of. - Family history:: not pertinent. ROS: 14:15 Positive for pelvic pain, vaginal discharge. ignacio 14:15 Constitutional: Negative for fever, chills, and weight loss, Eyes: Negative for injury, pain, redness, and discharge, ENT: Negative for injury, pain, and discharge, Neck: Negative for injury, pain, and swelling, Cardiovascular: Negative for chest pain, palpitations, and edema, Respiratory: Negative for shortness of breath, cough, wheezing, and pleuritic chest pain, Abdomen/GI: Negative for abdominal pain, nausea, vomiting, diarrhea, and constipation, Back: Negative for injury and pain, MS/Extremity: Negative for injury and deformity, Skin: Negative for injury, rash, and discoloration, Neuro: Negative for headache, weakness, numbness, tingling, and seizure, Psych: Negative for depression, anxiety, suicide ideation, homicidal ideation, and hallucinations, Allergy/Immunology: Negative for hives, rash, and allergies, Endocrine: Negative for neck swelling, polydipsia, polyuria, polyphagia, and marked weight changes, Hematologic/Lymphatic: Negative for swollen nodes, abnormal bleeding, and unusual bruising. Exam: 14:15 Constitutional: This is a well developed, well nourished patient who is awake, alert, ignacio and in no acute distress. Head/Face: Normocephalic, atraumatic. Eyes: Pupils equal round and reactive to light, extra-ocular motions intact. Lids and lashes normal. Conjunctiva and sclera are non-icteric and not injected. Cornea within normal limits. Periorbital areas with no swelling, redness, or edema. ENT: Nares patent. No nasal discharge, no septal abnormalities noted. Tympanic membranes are normal and external auditory canals are clear. Oropharynx with no redness, swelling, or masses, exudates, or evidence of obstruction, uvula midline. Mucous membranes moist. Neck: Trachea midline, no thyromegaly or masses palpated, and no cervical lymphadenopathy. Supple, full range of motion without nuchal rigidity, or vertebral point tenderness. No Meningismus. Chest/axilla: Normal chest wall appearance and motion. Nontender with no deformity. No lesions are appreciated. Cardiovascular: Regular rate and rhythm with a normal S1 and S2. No gallops, murmurs, or rubs. Normal PMI, no JVD. No pulse deficits. Respiratory: Lungs have equal breath sounds bilaterally, clear to auscultation and percussion. No rales, rhonchi or wheezes noted. No increased work of breathing, no retractions or nasal flaring. Abdomen/GI: Soft, non-tender, with normal bowel sounds. No distension or tympany. No guarding or rebound. No evidence of tenderness throughout. Back: No spinal tenderness. No costovertebral tenderness. Full range of motion. Skin: Warm, dry with normal turgor. Normal color with no rashes, no lesions, and no evidence of cellulitis. MS/ Extremity: Pulses equal, no cyanosis. Neurovascular intact. Full, normal range of motion. Neuro: Awake and alert, GCS 15, oriented to person, place, time, and situation. Cranial nerves II-XII grossly intact. Motor strength 5/5 in all extremities. Sensory grossly intact. Cerebellar exam normal. Normal gait. Psych: Awake, alert, with orientation to person, place and time. Behavior, mood, and affect are within normal limits. 14:15 : CVA tenderness, is absent, Pelvic Exam: is not necessary for this patient, Bladder: is normal, Sexual behavior: the patient is sexually active, and reports a single partner. Vital Signs: 13:30 BP 108 / 72; Pulse 63; Resp 18; Pulse Ox 98% on R/A; eh3 MDM: 12:18 Patient medically screened. [facility] 14:16 Differential diagnosis: ectopic , ovarian cyst, postcoital bleeding, uterine ignacio fibroids, urinary tract infection. Data reviewed: vital signs, nurses notes, lab test result(s), radiologic studies, ultrasound. Consideration of Admission/Observation Escalation of care including admission/observation considered. I considered the following discharge prescriptions or medication management in the emergency department Medications were administered in the Emergency Department. See MAR. Test considered but Not performed: EKG: no ekg . Historians other than the Patient: Spouse/Significant Other: , informed. Care significantly affected by the following chronic conditions: none. Counseling: I had a detailed discussion with the patient and/or guardian regarding: the historical points, exam findings, and any diagnostic results supporting the discharge/admit diagnosis, lab results, radiology results, the need for outpatient follow up, for definitive care, an OB/Gyne specialist. 03/02 12:18 Order name: Abo/rh Typing; Complete Time: 13:56 [facility] 03/02 12:18 Order name: Basic Metabolic Panel [facility] 03/02 12:18 Order name: CBC with Diff; Complete Time: 13:56 [facility] 03/02 12:18 Order name: Test, Urine; Complete Time: 14:22 [facility] 03/02 12:18 Order name: Quantitative Hcg [facility] 03/02 12:18 Order name: Urinalysis w/ reflexes [facility] 03/02 12:18 Order name: US Transvaginal Ob; Complete Time: 13:56 [facility] 03/02 12:18 Order name: IV Saline Lock; Complete Time: 13:40 [facility] 03/02 12:18 Order name: Labs collected and sent; Complete Time: 13:40 [facility] 03/02 12:18 Order name: NPO; Complete Time: 13:41 [facility] Administered Medications: 13:40 Drug: NS 0.9% IV 1000 ml Route: IV; Rate: 1 bolus; Site: left antecubital; eh3 14:45 Follow up: IV Status: Completed infusion; IV Intake: 800ml eh3 Disposition Summary: 03/02/23 14:22 Discharge Ordered Location: Home ignacio Problem: new ignacio Symptoms: have improved ignacio Condition: Stable ignacio Diagnosis - Threatened ignacio - Hemorrhage in early , unspecified - 6 week 4days, 2.4 x 2.2 cm ignacio subchorionic hemorrhage - Encounter for supervision of normal first , first trimester ignacio Followup: ignacio - With: Private Physician - When: 2 - 3 days - Reason: Recheck today's complaints, Continuance of care, Re-evaluation by your physician Discharge Instructions: - Discharge Summary Sheet ignacio - Care ignacio - Threatened Miscarriage ignacio - Vaginal Bleeding During , First Trimester ignacio - First Trimester of , [id number] ignacio - Threatened Miscarriage, [id number] ignacio - Vaginal Bleeding During , First Trimester, [id number] ignacio Forms: - Medication Reconciliation Form ignacio - Thank You Letter ignacio - Antibiotic Education ignacio - Prescription Opioid Use ignacio Prescriptions: - Diclegis 10-10 mg Oral tablet, delayed release (enteric coated) - take 1 tablet by ORAL route 3 times per day; 60 tablet; Refills: 0, Product ignacio Selection Permitted - ondansetron 4 mg Oral Tablet,disintegrating - take 1 tablet by ORAL route 3 times per day for 7 days as needed for nausea and ignacio vomiting; 21 tablet; Refills: 0, Product Selection Permitted Signatures: Dispatcher [employer] Rajesh Alicea MD MD cha Peltier, Brian, RN RN China Batista RN RN eh3 Corrections: (The following items were deleted from the chart) 13:44 13:44 Home Meds: Unable to obtain; bp bp
--- NOTE | 2023-03-02 14:23 | ER ---
Nurse's Notes [facility] Name: Reyna Owen Age: 22 yrs Sex: Female : 2000 Arrival Date: 03/02/2023 Time: 12:05 Bed 19 Private MD: Diagnosis: Threatened ;Hemorrhage in early , unspecified-6 week 4days, 2.4 x 2.2 cm subchorionic hemorrhage;Encounter for supervision of normal first , first trimester Presentation: 03/02 13:00 Chief complaint: Patient states: VAGINAL BLEEDING AND PELVIC PAIN SINCE LAST NIGHT, bp STATES 4-5 PADS SINCE THEN. Coronavirus screen: At this time, the client does not indicate any symptoms associated with coronavirus-19. Ebola Screen: No symptoms or risks identified at this time. Initial Sepsis Screen: Does the patient meet any 2 criteria? No. Patient's initial sepsis screen is negative. Does the patient have a suspected source of infection? No. Patient's initial sepsis screen is negative. Risk Assessment: Do you want to hurt yourself or someone else? Patient reports no desire to harm self or others. Onset of symptoms was March 01, 2023. 13:00 Method Of Arrival: Ambulatory bp 13:00 Acuity: DEANNE 3 bp Triage Assessment: 13:00 General: Appears in no apparent distress. Behavior is cooperative, appropriate for age, bp anxious. Pain: Complains of pain in pelvis. EENT: No deficits noted. Neuro: No deficits noted. Cardiovascular: No deficits noted. Respiratory: No deficits noted. GI: No deficits noted. : Reports vaginal bleeding that is light flow. Derm: No deficits noted. Musculoskeletal: No deficits noted. 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 - Social history:: Smoking status: Patient denies any tobacco usage or history of. - Family history:: not pertinent. Screenin:[address] [facility] ED Fall Risk Assessment (Adult) Score/Fall Risk Level 0 - 2 = Low Risk. Abuse eh3 screen: Denies threats or abuse. Denies injuries from another. Nutritional screening: No deficits noted. Tuberculosis screening: No symptoms or risk factors identified. Assessment: 12:52 Reassessment: pt taken to ultrasound. mb9 13:00 GI: Bowel sounds present X 4 quads. Abd is soft and non tender X 4 quads. eh3 13:15 General: SEE TRIAGE NOTE. bp 14:00 Reassessment: Patient appears in no apparent distress at this time. Patient and/or eh3 family updated on plan of care and expected duration. Pain level reassessed. Patient is alert, oriented x 3, equal unlabored respirations, skin warm/dry/pink. 14:40 Reassessment: discharge give to pt and via cultural Link Translation line. iw Vital Signs: 13:30 BP 108 / 72; Pulse 63; Resp 18; Pulse Ox 98% on R/A; eh3 ED Course: 12:07 Patient arrived in ED. aa5 12:18 Rajesh Pena MD is Attending Physician. ignacio 12:53 China Aguillon, GERSON is Primary Nurse. eh3 13:00 Arm band placed on. bp 13:00 Patient has correct armband on for positive identification. Bed in low position. Call 3 light in reach. Side rails up X2. Pulse ox on. NIBP on. Door closed. Noise minimized. Lights dimmed. Warm blanket given. 13:03 US Transvaginal Ob In Process Unspecified. EDMS 13:40 Inserted saline lock: 20 gauge in left antecubital area, using aseptic technique. Blood ah1 collected. 13:40 Abo/rh Typing Sent. ah1 13:40 Basic Metabolic Panel Sent. ah1 13:40 CBC with Diff Sent. ah1 13:40 Quantitative Hcg Sent. ah1 13:44 Triage completed. bp 14:12 No provider procedures requiring assistance completed. eh3 14:48 IV discontinued, intact, bleeding controlled, No redness/swelling at site. Pressure iw dressing applied. Administered Medications: 13:40 Drug: NS 0.9% IV 1000 ml Route: IV; Rate: 1 bolus; Site: left antecubital; eh3 14:45 Follow up: IV Status: Completed infusion; IV Intake: 800ml eh3 Medication: 14:12 VIS not applicable for this client. eh3 Intake: 14:45 IV: 800ml; Total: 800ml. eh3 Outcome: 14:22 Discharge ordered by MD. pierre 14:48 Discharged to home ambulatory, with family. 14:48 Condition: good 14:48 Discharge instructions given to patient, family, Instructed on discharge instructions, follow up and referral plans. medication usage, Demonstrated understanding of instructions, follow-up care, medications, Prescriptions given X 2. 14:48 Patient left the ED. iw Signatures: Dispatcher [employer] EDIN Rajesh Pena MD MD cha Williams, Irene RN RN Vilma Ang RN RN aa5 Dez Burris RN RN China Batista RN RN eh3 Lis Montgomery RN RN mb[address] [facility] [facility] Corrections: (The following items were deleted from the chart) 13:44 13:44 Home Meds: Unable to obtain; bp bp
[2023-03-02 14:24] LABS: Potassium 3.6 mEq/L (3.5-5.1)
[2023-03-02 14:38] LABS: Specific Gravity 1.018 (1.005-1.030); Transitional Epithelial <5 /HPF (None Seen); Urine Bacteria None Seen /HPF (<20); Urine Bilirubin NEGATIVE (Negative); Urine Blood 2+ (Negative); Urine Clarity Clear (Clear); Urine Color Light-Yellow (Yellow); Urine Glucose NEGATIVE (Negative); Urine Mucus Slight /HPF (None Seen); Urine Protein NEGATIVE (Negative); Urine RBC <5 /HPF (None Seen); Urine Urobilinogen Normal (Normal)
[2023-03-02 15:02] VITALS: BP 108/72; O2SAT 98
== END 2023-03-02 14:48 | disposition home or self-care (01) ==
LOC: ER 12:05
DX: O20.0 Threatened abortion (principal); Z3A.01 Less than 8 weeks gestation of pregnancy
CPT/HCPCS: 36415; 76817; 80048; 81001; 81025; 84702; 85025; 86900; 86901; 96360; 99284; J7030